=== PATIENT | male | born 1950 | race Caucasian/White ===

== ENCOUNTER → 2016-09-15 | Outpatient (CLI) | payer MEDICARE ==
[2016-09-15 11:21] LABS: BASO # 0.1 x10^3/uL (0.0-0.2); BASO % 1 % (0-3); EOS % 2 % (0-3); HEMATOCRIT 42.3 % (39.0-53.0); HEMOGLOBIN 14.1 g/dL (13.0-17.5); LYMPH # 2.1 x10^3/uL (1.0-4.8); LYMPH % 27 % (24-48); MEAN CORPUSCULAR HEMOGLOBIN 32 pg (25-35); MEAN CORPUSCULAR HGB CONC 33 g/dL (31-37); MEAN CORPUSCULAR VOLUME 97 fL (79-100); MONO % 7 % (0-9); NEUT % 63 % (31-73); PLATELET COUNT 225 x10^3/uL (140-400); RED BLOOD COUNT 4.37 x10^6/uL (4.30-5.70); RED CELL DISTRIBUTION WIDTH 13.5 % (11.5-14.5)
[2016-09-15 11:39] LABS: ALBUMIN 4.1 g/dL (3.4-5.0); ALBUMIN/GLOBULIN RATIO 1.2 (1.0-1.7); CALCIUM 10.1 mg/dL (8.5-10.1); CREATININE 0.9 mg/dL (0.7-1.3); GFR 83.9; POTASSIUM 4.4 mmol/L (3.5-5.1); TOTAL BILIRUBIN 0.5 mg/dL (0.2-1.0); TOTAL PROTEIN 7.5 g/dL (6.4-8.2)
[2016-09-15 11:50] LABS: FREE T4 1.05 ng/dL (0.76-1.46)
[2016-09-16 21:14] LABS: VITAMIN D25(OH)TOTAL 29.2 ng/mL (30.0-100.0)
== END | disposition home or self-care (01) ==
LOC: LAB 11:01 → MERGE 11:01
PROVIDERS: ATTEND Psychiatry & Neurology Neurology
DX: R41.3 Other amnesia (principal)
CPT/HCPCS: 36415; 80053; 82306; 82607; 84439; 84443; 85027

== ENCOUNTER → 2016-09-20 | Outpatient (CLI) | payer MEDICARE ==
--- NOTE | 2016-09-20 19:52 | EEG ---
DATE OF SERVICE: 09/20/2016 EEG NUMBER: [id number] OBJECTIVE: This is a 66-year-old male patient with history of memory loss and confusional episodes. EEG was requested to evaluate cerebral activity and help rule out seizure. METHOD: 20 electrodes were applied according to the International 10-20 electrode placement system. EKG monitoring, hyperventilation, intermittent photic stimulation, monopolar and bipolar montages are routinely utilized. The record was obtained on a digital system with video monitoring. FINDINGS: 1. Background: The patient was recorded in the awake and drowsy states. No actual sleep state was recorded. The overall background amplitude is 10-20 microvolts. A posterior dominant rhythm of 8 Hz is observed. 2. Abnormalities: No specific epileptiform discharge or electrographic seizure is seen. No focal or diffuse slowing. 3. Activation: Hyperventilation was performed with good efforts and normal response. Intermittent photic stimulation was performed with photic driving. IMPRESSION: This EEG is a normal study for the awake and drowsy states. No sleep state was recorded. No focal, lateralizing, specific epileptiform discharge, or electrographic seizure is seen. However, a normal EEG does not rule out seizure. CÉSAR VERAS MD DR: Loren JOB#: [id number] / [id number]
== END | disposition home or self-care (01) ==
LOC: RT 07:42
PROVIDERS: ATTEND Psychiatry & Neurology Neurology
DX: R41.3 Other amnesia (principal); R41.0 Disorientation, unspecified
CPT/HCPCS: 95816

== ENCOUNTER → 2016-10-10 | Outpatient (CLI) | payer MEDICARE ==
[~2016-10-10] MED LIST: GADOBUTROL 7.5 MMOL/7.5 ML VIAL IV ONE
--- NOTE | 2016-10-10 12:26 | RAD ---
PROCEDURE MRI brain without and with contrast. HISTORY Confusion, memory loss TECHNIQUE Multiplanar, multi sequential pre and post contrast MR imaging was performed of the brain. Contrast: 7.5 cc Gadavist COMPARISON None FINDINGS Ventricles are normal in size. There is mild to moderate supratentorial atrophy relatively greater of the parietal lobes. There is no intra-axial mass effect, midline shift, extra-axial fluid collection. There is no nodular parenchymal or leptomeningeal enhancement. There is small focus of encephalomalacia and gliosis of the left parietal lobe with cortical involvement. There are several scattered foci of T2 and FLAIR hyperintense signal abnormality of the frontal white matter bilaterally, minimally of the parietal lobes and also the periatrial white matter and temporal lobes not associated with enhancement. There is no significant hemosiderin deposition of the brain parenchyma. There is preservation of the major arterial intracranial flow voids at the skull base. There is diffuse moderate to severe fluid and thickening of the right mastoid air cells with associated mild enhancement, left mastoid air cells aerated. There is mild mucosal thickening of the right maxillary sinus greater near floor with also likely mucous retention cyst up to 1.3 cm. There is opacification of the left frontal sinus, no expansion. Cerebellar tonsils are normal in location. There is preservation of the marrow signal of the clivus. There is no significant abnormality of the pineal gland or pituitary gland. IMPRESSION 1. There is no evidence of recent infarct or abnormal intracranial enhancement. 2. There is mild to moderate supratentorial atrophy relatively greater of the parietal lobes. 3. Scattered T2 and FLAIR hyperintense signal abnormality of the supratentorial white matter is nonspecific although probably due to chronic microvascular ischemic disease. 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 4. There is nonspecific fluid of the right mastoid air cells of uncertain sterility, some associated nonspecific enhancement. Electronically signed by: Geovani Hale MD (Oct 10, 2016 12:25:37)
== END | disposition home or self-care (01) ==
LOC: MRI 10:40
PROVIDERS: ATTEND Psychiatry & Neurology Neurology
DX: R41.3 Other amnesia (principal); R41.0 Disorientation, unspecified; R25.9 Unspecified abnormal involuntary movements
CPT/HCPCS: 70553; A9585